=== PATIENT | male | born 1980 | race Caucasian/White ===

== ENCOUNTER 2022-10-15 12:36 | Emergency (ER) | payer MEDICARE, OTHER ==
[~2022-10-15] VITALS: Ht 175.3 cm; Wt 102.3 kg
[2022-10-15] MEDS ORDERED: INSU100V SQ (12:44)
[2022-10-15] MEDS ORDERED: INSU100I26 SQ (12:45)
[2022-10-15] MEDS ORDERED: INSU100I34 SQ (12:45)
[2022-10-15] MEDS ORDERED: ACETAMINOPHEN 500 MG TABLET PO ONE (13:30)
[2022-10-15] MEDS ORDERED: KETOROLAC TROMETHAMINE 30 MG/ML VIAL IM ONE (13:30)
[2022-10-15 15:44] VITALS: BP 118/75
== END 2022-10-15 15:46 | disposition home or self-care (01) ==
LOC: EMS 12:40
DX: S46.001A Unspecified injury of muscle(s) and tendon(s) of the rotator cuff of right shoulder, initial encounter (principal); E11.9 Type 2 diabetes mellitus without complications; Z90.49 Acquired absence of other specified parts of digestive tract; X58.XXXA Exposure to other specified factors, initial encounter; Y93.89 Activity, other specified; Y92.89 Other specified places as the place of occurrence of the external cause; Y99.0 Civilian activity done for income or pay
CPT/HCPCS: 99283; 29105; 82962; 73030; 96372; J1885